=== PATIENT | male | born 1940 | race Caucasian/White ===

== ENCOUNTER 2016-08-16 14:58 | Inpatient (IN) | payer MEDICARE, OTHER ==
[~2016-08-16 14:58] MED LIST: AMARYL2 M1 PO; DEMADEX20 M1 PO; ELIQUIS2.5 M1 PO; LASIX80 M1 PO; LEVOTHYROXINE100 MC1 PO; LIPITOR40 M1 PO; METOLAZONE2.5 M1 PO; MULTAQ400 M1 PO; ONGLYZA5 M1 PO; PLAVIX75 M1 PO; POTASSIUM CHLO20 ME3 PO; PRADAXA; VITAMIN D31000 UNI4 PO; ZINC50 M3 PO
[2016-08-16] MEDS ORDERED: ALDACTONE50 M1 PO (16:41)
[2016-08-16 20:44] LABS: BASO % 0.2 % (0-2); EOS % 2.1 % (0-7); EOSINOPHIL ABSOLUTE COUNT 0.1 tho/cmm (0.0-0.7); HCT-HEMATOCRIT 29.2 % (36.0-53.5); HGB-HEMOGLOBIN 9.8 gm/dl (13.5-17.0); IMMATURE GRANULOCYTES ABSOLUTE 0.02 tho/cmm (0-0.03); IMMATURE GRANULOCYTES PERCENT 0.3 % (0-0.3); LYMPH % 21.6 % (20-45); LYMPH ABSOLUTE COUNT 1.4 tho/cmm (0.8-4.5); MCH (MEAN CORPUSCULAR HGB) 29.3 pg (28.0-32.0); MCHC MEAN CORPUSCULAR HGB CONC 33.6 % (32.0-36.0); MCV (MEAN CELL VOLUME) 87.2 fl (82.0-96.0); MEAN PLATELET VOLUME 10.1 cmc (9.4-12.4); MONO % 7.9 % (0-12); MONOCYTE ABSOLUTE COUNT 0.5 tho/cmm (0.0-1.2); NEUTROPHIL ABSOLUTE COUNT 4.5 tho/cmm (1.6-8.0); NEUTROPHIL-AUTOMATED 4.5 tho/cmm (1.6-8.0); NEUTROPHILS % 67.9 % (40-80); PLATELET COUNT 107 tho/cmm (150-450); RED BLOOD COUNT 3.35 mil/cmm (4.40-5.70); RED CELL DISTRIBUTION WIDTH 17.5 % (12.4-16.4); WHITE BLOOD COUNT 6.6 tho/cmm (4.0-10.0)
[2016-08-16 20:59] LABS: ANION GAP 14 mmol/L (0-20); BLOOD UREA NITROGEN 57 mg/dl (6-24); CARBON DIOXIDE-VENOUS 31 mmol/L (22-32); CHLORIDE 88 mmol/l (96-110); CREATININE 2.79 mg/dl (0.60-1.30); GLUCOSE 224 mg/dL (70-110); SODIUM 130 mmol/L (135-145); eGFR VALUE FOR BLACK 27 mL/Min
[2016-08-17 06:38] LABS: ANION GAP 12 mmol/L (0-20); BLOOD UREA NITROGEN 55 mg/dl (6-24); CALCIUM 8.1 mg/dl (8.5-10.5); CARBON DIOXIDE-VENOUS 29 mmol/L (22-32); CHLORIDE 93 mmol/l (96-110); CREATININE 2.77 mg/dl (0.60-1.30); GLUCOSE 122 mg/dL (70-110); POTASSIUM 3.4 mmol/L (3.7-5.1); SODIUM 131 mmol/L (135-145); eGFR VALUE FOR BLACK 27 mL/Min
[2016-08-18 05:59] LABS: BASO % 0.2 % (0-2); EOS % 2.6 % (0-7); EOSINOPHIL ABSOLUTE COUNT 0.2 tho/cmm (0.0-0.7); HCT-HEMATOCRIT 28.6 % (36.0-53.5); HGB-HEMOGLOBIN 9.3 gm/dl (13.5-17.0); IMMATURE GRANULOCYTES ABSOLUTE 0.02 tho/cmm (0-0.03); IMMATURE GRANULOCYTES PERCENT 0.3 % (0-0.3); LYMPH % 23.8 % (20-45); LYMPH ABSOLUTE COUNT 1.5 tho/cmm (0.8-4.5); MCH (MEAN CORPUSCULAR HGB) 28.5 pg (28.0-32.0); MCHC MEAN CORPUSCULAR HGB CONC 32.5 % (32.0-36.0); MCV (MEAN CELL VOLUME) 87.7 fl (82.0-96.0); MEAN PLATELET VOLUME 10.2 cmc (9.4-12.4); MONO % 9.7 % (0-12); MONOCYTE ABSOLUTE COUNT 0.6 tho/cmm (0.0-1.2); NEUTROPHIL ABSOLUTE COUNT 3.9 tho/cmm (1.6-8.0); NEUTROPHIL-AUTOMATED 3.9 tho/cmm (1.6-8.0); NEUTROPHILS % 63.4 % (40-80); PLATELET COUNT 104 tho/cmm (150-450); RED BLOOD COUNT 3.26 mil/cmm (4.40-5.70); RED CELL DISTRIBUTION WIDTH 17.7 % (12.4-16.4); WHITE BLOOD COUNT 6.2 tho/cmm (4.0-10.0)
[2016-08-18 06:17] LABS: ANION GAP 13 mmol/L (0-20); BLOOD UREA NITROGEN 55 mg/dl (6-24); CALCIUM 8.2 mg/dl (8.5-10.5); CARBON DIOXIDE-VENOUS 29 mmol/L (22-32); CHLORIDE 96 mmol/l (96-110); CREATININE 2.84 mg/dl (0.60-1.30); GLUCOSE 154 mg/dL (70-110); POTASSIUM 3.5 mmol/L (3.7-5.1); SODIUM 134 mmol/L (135-145); eGFR VALUE FOR BLACK 26 mL/Min
[2016-08-19 05:19] LABS: EOS % 2.9 % (0-7); EOSINOPHIL ABSOLUTE COUNT 0.2 tho/cmm (0.0-0.7); HCT-HEMATOCRIT 28.5 % (36.0-53.5); HGB-HEMOGLOBIN 9.2 gm/dl (13.5-17.0); IMMATURE GRANULOCYTES ABSOLUTE 0.03 tho/cmm (0-0.03); IMMATURE GRANULOCYTES PERCENT 0.5 % (0-0.3); LYMPH % 24.4 % (20-45); LYMPH ABSOLUTE COUNT 1.4 tho/cmm (0.8-4.5); MCH (MEAN CORPUSCULAR HGB) 28.8 pg (28.0-32.0); MCHC MEAN CORPUSCULAR HGB CONC 32.3 % (32.0-36.0); MCV (MEAN CELL VOLUME) 89.3 fl (82.0-96.0); MEAN PLATELET VOLUME 9.8 cmc (9.4-12.4); MONOCYTE ABSOLUTE COUNT 0.5 tho/cmm (0.0-1.2); NEUTROPHIL ABSOLUTE COUNT 3.7 tho/cmm (1.6-8.0); NEUTROPHIL-AUTOMATED 3.7 tho/cmm (1.6-8.0); NEUTROPHILS % 63.2 % (40-80); PLATELET COUNT 115 tho/cmm (150-450); RED BLOOD COUNT 3.19 mil/cmm (4.40-5.70); WHITE BLOOD COUNT 5.8 tho/cmm (4.0-10.0)
[2016-08-19 05:43] LABS: ANION GAP 12 mmol/L (0-20); BLOOD UREA NITROGEN 52 mg/dl (6-24); C-REACTIVE PROTEIN 1.2 mg/dl (0-0.9); CALCIUM 8.2 mg/dl (8.5-10.5); CARBON DIOXIDE-VENOUS 28 mmol/L (22-32); CHLORIDE 99 mmol/l (96-110); CREATININE 2.87 mg/dl (0.60-1.30); GLUCOSE 124 mg/dL (70-110); POTASSIUM 3.4 mmol/L (3.7-5.1); SODIUM 136 mmol/L (135-145); eGFR VALUE FOR BLACK 26 mL/Min
[2016-08-19] MEDS ORDERED: NORCO 5-325 TA1 EACH PO (12:12)
[2016-08-19] MEDS ORDERED: TYLENOL325 M2 PO (12:14)
[2016-08-19] MEDS ORDERED: SENOKOT-S TABL1 EACH PO (12:16)
[2016-08-20 07:05] LABS: ANION GAP 13 mmol/L (0-20); BLOOD UREA NITROGEN 52 mg/dl (6-24); CALCIUM 8.2 mg/dl (8.5-10.5); CARBON DIOXIDE-VENOUS 27 mmol/L (22-32); CHLORIDE 99 mmol/l (96-110); CREATININE 2.82 mg/dl (0.60-1.30); GLUCOSE 136 mg/dL (70-110); POTASSIUM 4.4 mmol/L (3.7-5.1); SODIUM 135 mmol/L (135-145); eGFR VALUE FOR BLACK 27 mL/Min
[2016-08-20] MEDS ORDERED: VIBRAMYCIN100 M1 PO (12:10)
[2016-08-21 06:27] LABS: BASO % 0.3 % (0-2); EOS % 3.9 % (0-7); EOSINOPHIL ABSOLUTE COUNT 0.2 tho/cmm (0.0-0.7); HCT-HEMATOCRIT 29.2 % (36.0-53.5); HGB-HEMOGLOBIN 9.3 gm/dl (13.5-17.0); IMMATURE GRANULOCYTES ABSOLUTE 0.02 tho/cmm (0-0.03); IMMATURE GRANULOCYTES PERCENT 0.3 % (0-0.3); LYMPH % 24.5 % (20-45); LYMPH ABSOLUTE COUNT 1.4 tho/cmm (0.8-4.5); MCH (MEAN CORPUSCULAR HGB) 28.8 pg (28.0-32.0); MCHC MEAN CORPUSCULAR HGB CONC 31.8 % (32.0-36.0); MCV (MEAN CELL VOLUME) 90.4 fl (82.0-96.0); MEAN PLATELET VOLUME 9.7 cmc (9.4-12.4); MONO % 9.9 % (0-12); MONOCYTE ABSOLUTE COUNT 0.6 tho/cmm (0.0-1.2); NEUTROPHIL ABSOLUTE COUNT 3.6 tho/cmm (1.6-8.0); NEUTROPHIL-AUTOMATED 3.6 tho/cmm (1.6-8.0); NEUTROPHILS % 61.1 % (40-80); PLATELET COUNT 101 tho/cmm (150-450); RED BLOOD COUNT 3.23 mil/cmm (4.40-5.70); RED CELL DISTRIBUTION WIDTH 18.3 % (12.4-16.4); WHITE BLOOD COUNT 5.8 tho/cmm (4.0-10.0)
[2016-08-21 06:43] LABS: ANION GAP 11 mmol/L (0-20); BLOOD UREA NITROGEN 54 mg/dl (6-24); CALCIUM 8.4 mg/dl (8.5-10.5); CARBON DIOXIDE-VENOUS 30 mmol/L (22-32); CHLORIDE 102 mmol/l (96-110); CREATININE 2.96 mg/dl (0.60-1.30); GLUCOSE 151 mg/dL (70-110); POTASSIUM 3.9 mmol/L (3.7-5.1); SODIUM 139 mmol/L (135-145); eGFR VALUE FOR BLACK 25 mL/Min
[2016-08-21] MEDS ORDERED: LOVENOX30 MG/0.1 SC (12:10)
[2016-08-21] MEDS ORDERED: ULTRAM50 M1 PO (12:14)
[2016-08-21] MEDS ORDERED: NOVOLOG100 UNITS/ (12:17)
== END 2016-08-21 14:42 | DRG 623 ==
LOC: 5EB 14:58 → ORE 08-19 08:44 → 5EB 08-19 10:05
PROVIDERS: Family Medicine; Internal Medicine Infectious Disease; Registered Nurse; ADMIT Orthopaedic Surgery Foot and Ankle Surgery
PROC: 0JBR0ZZ Excision of Left Foot Subcutaneous Tissue and Fascia, Open Approach (ICD-10-PCS; principal; 2016-08-16)
PROC: 0QBP0ZX Excision of Left Metatarsal, Open Approach, Diagnostic (ICD-10-PCS; 2016-08-16)
DX: E11.621 Type 2 diabetes mellitus with foot ulcer (principal); M86.172 Other acute osteomyelitis, left ankle and foot; N18.4 Chronic kidney disease, stage 4 (severe); I48.0 Paroxysmal atrial fibrillation; D69.6 Thrombocytopenia, unspecified; I50.42 Chronic combined systolic (congestive) and diastolic (congestive) heart failure; L97.529 Non-pressure chronic ulcer of other part of left foot with unspecified severity; E11.36 Type 2 diabetes mellitus with diabetic cataract; E11.69 Type 2 diabetes mellitus with other specified complication; I12.9 Hypertensive chronic kidney disease with stage 1 through stage 4 chronic kidney disease, or unspecified chronic kidney disease; I25.10 Atherosclerotic heart disease of native coronary artery without angina pectoris; I25.5 Ischemic cardiomyopathy; D63.1 Anemia in chronic kidney disease; E87.6 Hypokalemia; Z95.1 Presence of aortocoronary bypass graft; Z79.4 Long term (current) use of insulin
CPT/HCPCS: J0885; J1650; J1815; J1940; J2250; J2543; J3010; J3370; J7050